=== PATIENT | female | born 1970 | race Caucasian/White ===

== ENCOUNTER 2021-02-18 00:53 | Emergency (ER) | payer OTHER ==
[~2021-02-18] VITALS: Ht 162.6 cm; Wt 72.6 kg
--- NOTE | ~2021-02-18 | EMS ---
[address] [address] EMS Patient Care Report Name: BERTA FRYE Room #: DEP [facility] Tillman#: [id number] Admission: 02/18/21 Attend Phys: Discharge: 02/18/21 Date of : 66 Report #: [id number] THIS REPORT FOR: //name// Report Transmitted: 02/19/2021 08:58 EMS Care Summary [place], [place]/[facility] Incident [id number] @ 02/18/2021 00:26 Incident Location [address] [place] [id number] Patient BERAT FRYE Female, 50 Years 1970 Patient Address [address] [place] [address] Patient History None Reported, Patient Allergies No known allergies, Patient Medications None Reported, Chief Complaint Vaginal Bleeding Disposition Transported No Lights/[place] Dispatch Reason Sick Person Transported To [facility] Narrative Patient stated that she has been having vaginal bleeding with clots for two months. Initial Vitals [address] [address] EMS Patient Care Report Name: BERTA FRYE Room #: DEP [facility].#: [id number] Admission: 02/18/21 Attend Phys: Discharge: 02/18/21 Date of : 66 Report #: [id number] @00:47P: 80,Pain: 0/10, @00:34P: 77,R: 16,BP: 152/81,Pain: 2/10,GCS: 15,SpO2: 96,Revised Trauma: 12, Assessments @00:32MENTAL:Event Oriented,Person Oriented,Time Oriented,Place Oriented,SKIN:HEENT:LUNG SOUNDS:General: No Abnormalities,ABDOMEN:General: No Abnormalities,PELVIS//GI:EXTREMITIES:PULSE:NEURO:No Abnormalities, Impression Vaginal Hemorrhage Procedures @01:00ALS AssessmentResponse: Unchanged Timeline 00:23,Call Received 00:23,Dispatch Notified 00:26,Dispatched 00:27,En Route 00:30,On Scene 00:31,At Patient 00:34,BP: 152/81 M,PULSE: 77,RR: 16 R,SPO2: 96 Ox,ETCO2: ,BG: ,PAIN: 2,GCS: 15, 00:38,Depart Scene 00:47,BP: 140/ M,PULSE: 80,RR: R,SPO2: Ox,ETCO2: ,BG: ,PAIN: 0,GCS: , 00:48,At Destination 01:00,ALS Assessment,Response: Unchanged 01:05,Call Closed Disclaimer [email or web address] Copyright 2020 [employer] This EMS Care Summary contains data elements from the applicable legal record (which may be displayed differently). It is designed to provide pertinent information for the following purposes: continuity of care, clinical quality, and state data reporting. The complete legal record is available to ED staff and administrators of the receiving hospital in [employer] Patient Tracker. All data is provided "as is."
[2021-02-18 01:49] LABS: ABSOLUTE NEUTROPHILS 2.9 thou/uL (1.4-8.2); EOSINOPHILS 4.6 % (0.0-3.0); HEMATOCRIT 29.7 % (37.0-47.0); HEMOGLOBIN 9.4 gm/dL (12.0-15.0); LYMPHOCYTES 21.6 % (24.0-44.0); MCH 28.3 pg (26.0-34.0); MCHC 31.7 g/dL (28.0-37.0); MCV 89.3 fL (80.0-100.0); MONOCYTES 10.5 % (1.0-8.0); PLATELET COUNT 290 thou/uL (150-400); POLYS 62.3 % (36.0-66.0); RBC 3.33 mil/uL (4.20-5.00); WBC 4.7 thou/uL (4.0-11.0)
[2021-02-18 01:55] LABS: CALCIUM 8.5 mg/dL (8.5-10.1); CREATININE 0.8 mg/dL (0.6-1.0); POTASSIUM 3.6 mmol/L (3.5-5.1)
[2021-02-18 02:06] LABS: ALBUMIN 3.4 g/dL (3.4-5.0); TOTAL BILIRUBIN 0.2 mg/dL (0.2-1.0); TOTAL PROTEIN 6.5 g/dL (6.4-8.2)
[2021-02-18 02:33] VITALS: BP 147/74
--- NOTE | 2021-02-18 16:25 | EKG ---
[address] [address] ELECTROCARDIOGRAM REPORT Name: BERTA FRYE [id number] Admission: 02/18/21 Attend Phys: Discharge: 02/18/21 Date of : 66 Report #: [id number] [facility] ED Test Date: 2021-02-18 Test Time: 01:02:57 Pat Name: BERTA FRYE Department: Room: Gender: F Core Maker: pablito : 1970 Requested By: Roldan yBrd Order Number: [id number] MD: Von Law Measurements Intervals [place] Rate: 66 P: 57 [place]: 129 QRS: 24 QRSD: 122 T: 41 QT: 428 QTc: 449 Interpretive Statements Sinus rhythm Nonspecific intraventricular conduction delay No previous ECG available for comparison Electronically Signed On 02-18-2021 16:25:38 CDT by Von Law [email or web address] <ELECTRONICALLY SIGNED> By: Von Law MD, [facility] 02/18/21 1625 0102 [id number] Von Law MD, FACC /EPI
== END 2021-02-18 02:47 | disposition home or self-care (01) ==
LOC: ER 00:53
PROVIDERS: Emergency Medicine
DX: R07.89 Other chest pain (principal)